=== PATIENT | female | born 1970 | race Caucasian/White ===

== ENCOUNTER → 2016-09-24 | Outpatient (CLI) | payer OTHER ==
[2016-09-24 12:32] LABS: FREE T4 1.16 ng/dL (0.76-1.46)
[2016-09-25 03:13] LABS: ESTRADIOL LEVEL <5.0 pg/mL (.); FSH 34.9 mIU/mL (.); PROGESTERONE <0.1 ng/mL (.)
== END | disposition home or self-care (01) ==
LOC: LAB 11:48
PROVIDERS: ATTEND Nurse Practitioner Women's Health
DX: N95.1 Menopausal and female climacteric states (principal); N92.1 Excessive and frequent menstruation with irregular cycle
CPT/HCPCS: 36415; 82670; 83001; 84144; 84402; 84403; 84439; 84443; 84481

== ENCOUNTER → 2016-10-04 | Outpatient (CLI) | payer OTHER ==
[2016-10-04 08:39] LABS: OBC FLU VALID
== END | disposition home or self-care (01) ==
LOC: LAB 07:46
PROVIDERS: ATTEND Nurse Practitioner
DX: J06.9 Acute upper respiratory infection, unspecified (principal)
CPT/HCPCS: 87804

== ENCOUNTER → 2017-01-14 | Outpatient (CLI) | payer OTHER ==
[2017-01-15 09:19] LABS: ESTRADIOL LEVEL 16.1 pg/mL (.)
== END | disposition home or self-care (01) ==
LOC: LAB 11:59
PROVIDERS: ATTEND Family Medicine
DX: Z79.890 Hormone replacement therapy (principal)
CPT/HCPCS: 36415; 82306; 82627; 82670; 84402; 84403

== ENCOUNTER → 2017-01-24 | Outpatient (CLI) | payer OTHER | END | disposition home or self-care (01) | LOC: LAB 16:43 | PROVIDERS: ATTEND Family Medicine | DX: N95.1 Menopausal and female climacteric states (principal); N95.9 Unspecified menopausal and perimenopausal disorder | CPT/HCPCS: 36415; 84144 ==

== ENCOUNTER → 2017-07-24 | Outpatient (CLI) | payer OTHER ==
[~2017-07-24] MED LIST: LEVO25TA4 PO
== END | disposition home or self-care (01) ==
LOC: LAB 09:12
PROVIDERS: ATTEND Family Medicine
DX: E03.9 Hypothyroidism, unspecified (principal)
CPT/HCPCS: 36415; 84443; 84481

== ENCOUNTER → 2017-07-24 | Outpatient (CLI) | payer OTHER ==
[~2017-07-24] MED LIST changes: +GADOBUTROL 7.5 MMOL/7.5 ML VIAL IV ONE
--- NOTE | 2017-07-24 11:19 | RAD ---
MR of the right knee with and without contrast HISTORY: Medial right knee mass. Painful to the touch. Symptoms for 1.5 weeks. TECHNIQUE: Routine multiplanar sequences before and after intravenous contrast. FINDINGS: There is a soft tissue fluid collection at the posterior medial knee, measures 3.5 cm AP by 1.5 cm wide by 3.7 cm cephalocaudal. The contains uniform homogeneous fluid signal with no internal enhancement, compatible with a cyst. This is deep to the distal sartorius muscle which is displaced outward. This is also deep to the gracilis tendon. No solid enhancing mass is identified. Muscle tissue is intrinsically intact. No significant joint effusion. No bone lesion. No acute fracture. No acute bone marrow edema. No evidence of medial or lateral meniscal tear. Anterior and posterior cruciate ligaments are intact. Medial collateral ligament intact Iliotibial band intact. Lateral collateral ligament intact. Fibular collateral ligament, biceps femoris tendon and popliteus tendon are intact. Extensor mechanism intact Trace joint effusion. 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 Medial and lateral compartment articular cartilage intact. IMPRESSION: 1. Moderate soft tissue cyst or ganglion along the posteromedial femoral condyle, deep to the sartorius. 2. No evidence of internal derangement. Electronically signed by: Cehma Isaac MD (07/24/2017 11:16 AM) [id number]
== END | disposition home or self-care (01) ==
LOC: MRI 09:04
PROVIDERS: ATTEND Nurse Practitioner Gerontology
DX: M25.861 Other specified joint disorders, right knee (principal); M22.41 Chondromalacia patellae, right knee; R20.0 Anesthesia of skin
CPT/HCPCS: 73723; A9585

== ENCOUNTER 2017-09-11 06:15 | Day surgery (SDC) | payer OTHER ==
[2017-09-11 06:39] LABS: NEG OBC UR NEG; POS OBC UR POS; U PREG PATIENT NEGATIVE (NEG)
[2017-09-11] MEDS ORDERED: PROCHLORPERAZINE 10 MG/2 ML VIAL. IV (07:00)
[2017-09-11] MEDS ORDERED: LIDOCAINE 1% PF 2 ML VIAL. ID (07:00)
[2017-09-11] MEDS: IV RINGERS,LACTATED 1000ML 1,000 ML IV (07:00)
[2017-09-11] MEDS ORDERED: fentaNYL PF VIAL 100 MCG/2 ML VIAL IV (07:00)
[2017-09-11] MEDS ORDERED: MIDAZOLAM HCL/PF 2 MG/2 ML VIAL. (07:13)
[2017-09-11] MEDS ORDERED: fentaNYL PF VIAL 100 MCG/2 ML VIAL (07:13)
[2017-09-11] MEDS: LIDOCAINE 1% 20 ML VIAL. (07:42)
[2017-09-11] MEDS: BUPIVACAINE MPF 0.5% 30 ML VIAL. (07:42)
[2017-09-11] MEDS ORDERED: DEXAMETHASONE SOD PHOS 20 MG/5 ML VIAL. (07:53)
[2017-09-11] MEDS ORDERED: FAMOTIDINE 20 MG/2 ML VIAL (07:53)
[2017-09-11] MEDS ORDERED: ONDANSETRON PF 4 MG/2 ML VIAL. (07:53)
[2017-09-11] MEDS ORDERED: PROPOFOL 20 ML IV (07:53)
[2017-09-11] MEDS ORDERED: KETOROLAC 30 MG/ML INJ FOR OR. INJ (07:53)
[2017-09-11] MEDS: fentaNYL PF VIAL 100 MCG/2 ML VIAL IV ×2 (09:01→09:27)
[2017-09-11] MEDS: ONDANSETRON PF 4 MG/2 ML VIAL. IV (09:02)
[2017-09-11] MEDS: oxyCODONE/APAP 5/325 1 TAB TABLET PO (09:52)
[2017-09-11] MEDS: PROCHLORPERAZINE 10 MG/2 ML VIAL. IV (10:10)
== END 2017-09-11 10:44 | disposition home or self-care (01) ==
LOC: SURG 06:15
DX: M71.21 Synovial cyst of popliteal space [Baker], right knee (principal); E03.9 Hypothyroidism, unspecified; Z88.8 Allergy status to other drugs, medicaments and biological substances; Z98.890 Other specified postprocedural states
CPT/HCPCS: 27345; 81025; 88304; J0690; J0780; J1100; J1885; J2250; J2405; J2704; J3010; J3490; S0028